=== PATIENT | female | born 1965 | race Hispanic/Latino ===

== ENCOUNTER 2020-06-17 12:52 | Emergency (ER) | payer OTHER | END 2020-06-17 14:54 | disposition home or self-care (01) | LOC: EDH 12:52 | DX: M62.830 Muscle spasm of back (principal); F41.1 Generalized anxiety disorder; R00.0 Tachycardia, unspecified | CPT/HCPCS: 36415; 71045; 82550; 84484; 93005 ==

== ENCOUNTER 2020-06-23 20:56 | Observation (INO) | payer OTHER ==
[~2020-06-23] VITALS: Ht 152.4 cm; Wt 64.4 kg
[2020-06-23] MEDS ORDERED: ASPIRIN 325 MG TABLET ONE (21:56)
[2020-06-23 22:16] LABS: BASOPHILS % (AUTO) 0.5 % (0.0-5.0); EOSINOPHILS % (AUTO) 3.2 % (0.0-8.0); HEMATOCRIT 38.7 % (36-48); LYMPHOCYTES % (AUTO) 21.5 % (21.0-51.0); MEAN CORPUSCULAR HGB CONC 32.3 g/dL (32.0-36.0); MONOCYTES % (AUTO) 6.7 % (3.0-13.0); NEUTROPHILS % (AUTO) 67.8 % (40.0-77.0); PLATELET COUNT (AUTO) 259 K/uL (130-400); RED BLOOD CELL COUNT(AUTO) 4.03 MIL/uL (4.00-5.50); RED CELL DISTRIBUTION WIDTH 13.7 % (11.0-15.5); WHITE BLOOD COUNT (AUTO) 7.6 K/uL (4.8-10.8)
[2020-06-23 22:34] LABS: INR 0.87 (0.85-1.15); PARTIAL THROMBOPLASTIN TIME 22.2 SEC (26.3-35.5); PROTHROMBIN TIME 9.4 SEC (9.6-11.6)
[2020-06-23 23:22] LABS: CREATININE 0.9 mg/dL (0.5-1.5); POTASSIUM 4.5 mmol/L (3.5-5.1)
[2020-06-23 23:27] LABS: ALBUMIN 4.2 g/dL (3.5-5.0); BILIRUBIN,TOTAL 0.4 mg/dL (0.2-1.0); TOTAL PROTEIN, SERUM 7.7 g/dL (6.0-8.3)
[2020-06-24] MEDS ORDERED: HYDRALAZINE HCL 20 MG/ML VIAL IV PRN (00:15)
[2020-06-24] MEDS: NITROGLYCERIN 1GM/1 INCH PACKET TD SCH ×3 (00:15→17:05)
[2020-06-24] MEDS ORDERED: NITROGLYCERIN 1GM/1 INCH PACKET TD ONE (00:39)
[2020-06-24 02:20] VITALS: BP 154/83
[2020-06-24 04:00] VITALS: BP 151/83
[2020-06-24 07:45] VITALS: BP 145/80
[2020-06-24] MEDS: ASPIRIN 325 MG TABLET PO SCH (08:59)
[2020-06-24] MEDS: ENOXAPARIN SODIUM 40 MG/0.4 ML SYRINGE SQ SCH (09:00)
[2020-06-24 09:58] LABS: CRP QUANTITATIVE 5.8 mg/L (0.00-9.0)
[2020-06-24 11:00] VITALS: BP 136/81
[2020-06-24] MEDS ORDERED: IOHEXOL-350 75 ML VIAL IV ONE (13:03)
[2020-06-24] MEDS: METOPROLOL TARTRATE 25 MG TAB PO SCH ×3 (13:36→20:47)
--- NOTE | 2020-06-24 14:07 | NUR ---
dr edmondson here to see patient on new consult; he ordered a treadmill stress test for tomorrow; i have called alex in nuclear medicine and he stated to make the patient npo at [facility] and no caffeine from now, he stated his dep. will do the consent; i have informed pt;
[2020-06-24 16:00] VITALS: BP 128/73
[2020-06-24 19:00] VITALS: BP 152/76
[2020-06-25] VITALS: BP 152/88
[2020-06-25] MEDS: NITROGLYCERIN 1GM/1 INCH PACKET TD SCH ×2 (00:17→08:42)
[2020-06-25 04:00] VITALS: BP 139/74
[2020-06-25 04:12] LABS: BASOPHILS % (AUTO) 0.6 % (0.0-5.0); EOSINOPHILS % (AUTO) 4.1 % (0.0-8.0); HEMATOCRIT 36.1 % (36-48); LYMPHOCYTES % (AUTO) 31.4 % (21.0-51.0); MEAN CORPUSCULAR HEMOGLOBIN 30.7 pg (27.0-33.0); MEAN CORPUSCULAR HGB CONC 32.4 g/dL (32.0-36.0); MEAN CORPUSCULAR VOLUME 94.8 fL (79-99); MONOCYTES % (AUTO) 9.8 % (3.0-13.0); NEUTROPHILS % (AUTO) 53.8 % (40.0-77.0); PLATELET COUNT (AUTO) 249 K/uL (130-400); RED BLOOD CELL COUNT(AUTO) 3.81 MIL/uL (4.00-5.50); RED CELL DISTRIBUTION WIDTH 13.8 % (11.0-15.5); WHITE BLOOD COUNT (AUTO) 7.1 K/uL (4.8-10.8)
[2020-06-25 04:38] LABS: CREATININE 0.7 mg/dL (0.5-1.5); POTASSIUM 3.8 mmol/L (3.5-5.1)
[2020-06-25 07:58] VITALS: BP 126/90
[2020-06-25] MEDS: ASPIRIN 325 MG TABLET PO SCH (08:41)
[2020-06-25] MEDS: METOPROLOL TARTRATE 25 MG TAB PO SCH ×2 (08:41→13:07)
[2020-06-25] MEDS: ENOXAPARIN SODIUM 40 MG/0.4 ML SYRINGE SQ SCH (08:42)
--- NOTE | 2020-06-25 11:00 | NUR ---
CHART CHECK COMPLETED. Pt IS A 54 Y.O. FEMALE ADMITTED SECONDARY TO CHEST PAIN,ACS R/O ABNORMAL EKG. Pt HAS A PAST MEDICAL HISTORY SIGNIFICANT FOR COVID +, TUBAL LIGATION. Pt CURRENTLY NPO SECONDARY TO ADMITTING DIAGNOSIS. PLEASE REQUEST FORMAL SKILLED SPEECH/SWALLOW EVALUATION IF Pt PRESENTS WITH +S/S OF ASPIRATION SUCH COUGH RESPONSE, THROAT CLEAR, OR WET VOCAL QUALITY DURING P.O. Addendum: 06/25/20 at 1104 by MENDY CHRISTENSEN, [facility] Amended: Links added.
[2020-06-25 11:16] VITALS: BP 126/75
--- NOTE | 2020-06-25 15:39 | NUR ---
PATIENT CAME BACK FROM STRESS TEST. SUNNY INFORMED ME THAT PT REFUSED STRESS TEST. I TALK TO MRS SHERIFF AND SHE STATED THAT SHE REFUSED BECAUSE SHE WAS FEELING NERVOUS AND WAS HAVING "PALPITATIONS" DR GIMENEZ ORDERED AN EKG STAT. EKG: NSR 92. NO ORDERS RECEIVED. PATIENT SEEMS VERY ANXIOUS AND RESTLESS. VITAL SIGNS NORMAL. I CALLED DR EVANGELISTA AND PER CARDIOLOGY STAND POINT PT CAN GO HOME AND F/U NEXT WEEK.
[2020-06-25 16:00] VITALS: BP 122/68
[2020-06-25] MEDS ORDERED: ATOR20TA65 PO (16:28)
[2020-06-25] MEDS ORDERED: ASPI-1197 PO (16:28)
[2020-06-25] MEDS ORDERED: HYDR-3421 PO (16:28)
--- NOTE | 2020-06-25 17:40 | NUR ---
DISCHARGE PATIENT GIVEN DISCHARGE INSTRUCTIONS AND EDUCATION ON FOLLOW UP APPOINTMENTS, NEW PRESCRIBED MEDICATIONS, AND HOW TO STOP THE SPREAD OF CORONAVIRUS. PATIENT VERBALIZED UNDERSTANDING OF ALL EDUCATION GIVEN VIA TEACH BACK. IV DISCONTINUED, CATHETER INTACT. NO DISTRESS NOTED. PATIENT LEFT VIA WHEELCHAIR, PCP AT SIDE.
[2020-06-25] MEDS ORDERED: ATORVASTATIN CALCIUM 20 MG TABLET PO SCH (21:00)
== END 2020-06-25 18:05 | disposition home or self-care (01) ==
LOC: EDH 20:56 → EDHIP 06-24 00:12 → 3AH 06-24 02:27
PROVIDERS: ADMIT Internal Medicine; ATTEND Internal Medicine
DX: U07.1 COVID-19 (principal); R00.2 Palpitations; Z98.51 Tubal ligation status
CPT/HCPCS: 36415 ×3; 71045; 71275; 80048; 80053; 80061; 82550; 82728; 83615; 83690; 84443; 84484 ×3; 85025 ×2; 85378; 85610; 85730; 86140; 93005 ×4; 96372 ×2; 99285; G0378 ×25; J1650 ×2; Q9967; U0003

== ENCOUNTER 2020-06-29 00:39 | Emergency (ER) | payer OTHER ==
[~2020-06-29 00:39] MED LIST: ASPI-1197 PO; ATOR20TA65 PO; HYDR-3421 PO
[2020-06-29] MEDS ORDERED: ASPIRIN 325 MG TABLET ONE (01:17)
[2020-06-29] MEDS ORDERED: NITROGLYCERIN 1GM/1 INCH PACKET TD ONE (01:18)
[2020-06-29 01:25] LABS: BASOPHILS % (AUTO) 0.6 % (0.0-5.0); EOSINOPHILS % (AUTO) 0.9 % (0.0-8.0); HEMATOCRIT 36.1 % (36-48); LYMPHOCYTES % (AUTO) 38.5 % (21.0-51.0); MEAN CORPUSCULAR HGB CONC 33.2 g/dL (32.0-36.0); MEAN CORPUSCULAR VOLUME 93.3 fL (79-99); MONOCYTES % (AUTO) 9.2 % (3.0-13.0); NEUTROPHILS % (AUTO) 50.7 % (40.0-77.0); PLATELET COUNT (AUTO) 319 K/uL (130-400); RED BLOOD CELL COUNT(AUTO) 3.87 MIL/uL (4.00-5.50); RED CELL DISTRIBUTION WIDTH 13.5 % (11.0-15.5); WHITE BLOOD COUNT (AUTO) 7.8 K/uL (4.8-10.8)
[2020-06-29 01:28] LABS: CREATININE 0.7 mg/dL (0.5-1.5); POTASSIUM 3.8 mmol/L (3.5-5.1)
[2020-06-29 01:32] LABS: ALBUMIN 3.9 g/dL (3.5-5.0); BILIRUBIN,TOTAL 0.3 mg/dL (0.2-1.0); MAGNESIUM 2.7 mg/dL (1.80-2.40); TOTAL PROTEIN, SERUM 7.7 g/dL (6.0-8.3)
[2020-06-29 01:40] LABS: B-TYPE NATRIURETIC PEPTIDE 13 pg/mL (0-100)
[2020-06-29 02:06] LABS: AMPHET/METH SCREEN,URINE NEGATIVE (NEGATIVE); BARBITURATE SCREEN, URINE NEGATIVE (NEGATIVE); BENZODIAZEPINES SCREEN,URINE NEGATIVE (NEGATIVE); CANNABINOID SCREEN,URINE NEGATIVE (NEGATIVE); COCAINE SCREEN,URINE NEGATIVE (NEGATIVE); OPIATE SCREEN,URINE NEGATIVE (NEGATIVE); PHENCYCLIDINE SCREEN,URINE NEGATIVE (NEGATIVE)
== END 2020-06-29 04:02 | disposition home or self-care (01) ==
LOC: EDH 00:39
DX: R00.2 Palpitations (principal); R07.89 Other chest pain; R06.02 Shortness of breath; Z98.51 Tubal ligation status
CPT/HCPCS: 36415; 71046; 80053; 80305; 82550; 83690; 83735; 83880; 84484; 85025; 93005